=== PATIENT | female | born 1975 | race Caucasian/White ===

== ENCOUNTER 2022-07-12 22:46 | Emergency (ER) | payer OTHER ==
[~2022-07-12] VITALS: Ht 157.5 cm; Wt 66.7 kg
[~2022-07-12 22:46] MED LIST: PRENATAL VITS
[2022-07-12 23:00] VITALS: BP 141/81
--- NOTE | 2022-07-12 23:03 | NUR ---
TO LOBBY A/W BED AMBULATORY
[2022-07-12 23:06] VITALS: BP 141/81
[2022-07-13] MEDS ORDERED: BENZ200C4 PO (00:10)
[2022-07-13] MEDS ORDERED: IBUP-2213 PO (00:10)
[2022-07-13] MEDS ORDERED: KETOROLAC 15 MG/ML VIAL IM ONE (00:20)
--- NOTE | 2022-07-13 00:41 | NUR ---
Patient discharged with v/s stable. Written and verbal after care instructions given and explained. Patient alert, oriented and verbalized understanding of instructions. Ambulatory with steady gait. All questions addressed prior to discharge. ID band removed. Patient advised to follow up with PMD. Rx of MOTRIN AND BENZONATE given. Patient educated on indication of medication including possible reaction and side effects. Opportunity to ask questions provided and answered.
== END 2022-07-13 00:41 | disposition home or self-care (01) ==
LOC: MED 22:46
DX: J02.9 Acute pharyngitis, unspecified (principal); Z79.899 Other long term (current) drug therapy; Z79.1 Long term (current) use of non-steroidal anti-inflammatories (NSAID)
CPT/HCPCS: 87081; 96372; 99283; J1885